=== PATIENT | female | born 1940 | race Caucasian/White ===

== ENCOUNTER 2016-03-03 17:09 | Inpatient (IN) ==
--- NOTE | 2016-03-05 14:39 | Internal Med History&Physical ---
Date of Encounter: 03/05/16 Time of Encounter: 14:30 Assessment and Plan (1) History of total right knee replacement Current visit: Yes Status: Acute Status post right total knee replacement for osteoarthritis. Internal Medicine - H&P: HPI Chief complaint: Patient had a total knee done due to osteoarthritis Admitted From: Hospital to Hospital Transfer Plans for Post Hospital Care: Home History of present illness: Ms. Sandhu is a 76 year old female Past Med Surg Social Fam HX - Past Medical History Medical history: arthritis, cancer, diabetes, GERD, glaucoma, hyperlipidemia, hypertension - Past Surgical History Surgical History: hysterectomy - Social History Smoking Status: Never smoker Alcohol use: none Drug use: none Internal Medicine - H&P: Meds Allergies Sulfa (Sulfonamide Antibiotics) Adverse Reaction (Verified 02/24/15 08:40) Hives All Systems PM: A 10-system review of systems was performed and is negative for pertinent findings except as documented above in the HPI. - Head Head exam: Present: atraumatic, normocephalic - Neck Neck exam general surgery: Present: supple, trachea midline. Absent: lymphadenopathy - Respiratory Respiratory exam: Present: CTAB. Absent: accessory muscle use, rales, rhonchi, wheezes - Cardiovascular Cardiovascular exam: Present: RRR, +S1, +S2. Absent: diastolic murmur, gallop, rubs, systolic murmur - GI/Abdominal GI/Abdominal exam: Present: normal bowel sounds, soft, no peritoneal signs. Absent: distended, tenderness - Expanded Lower Extremities Exam Knee exam: Present: swelling, tenderness Lower Leg exam: Present: normal inspection Internal Med - H&P Results - Labs Labs: Pending
[2016-03-05] MEDS ORDERED: Hydrocortisone Acetate 25 MG RECTAL SUPPOSITORY RC PRN (16:24)
[2016-03-05] MEDS ORDERED: NON-FORMULARY MEDICATION 1 EACH EACH (Oxycodone Hcl [Oxaydo] 5 MG) PO PRN (16:24)
[2016-03-05] MEDS ORDERED: Bisacodyl 10 MG RECTAL SUPPOSITORY RC PRN (16:24)
[2016-03-05] MEDS ORDERED: *HR* Dextrose 50 % in Water (Syg) 50 ML SYRINGE IVP PRN (16:31)
[2016-03-05] MEDS ORDERED: Dextrose Gel 15 GM PO PRN ×2 (16:31)
[2016-03-05] MEDS ORDERED: D5% in Water 1,000 ML IV PRN (16:31)
[2016-03-05] MEDS: *HR* Metformin 500 MG TABLET PO SCH (16:55)
[2016-03-05] MEDS: Insulin LISPRO 300 UNITS/3 ML VIAL SQ SCH ×2 (16:56→20:42)
[2016-03-05] MEDS: [UNRECOGNIZED DRUG - OTHER] PO SCH (16:58)
[2016-03-05] MEDS: Lisinopril 20 MG TABLET PO SCH (19:45)
[2016-03-05] MEDS: *HR* OxyCODONE/APAP 5/325 TABLET PO PRN (19:45)
[2016-03-05] MEDS: Ondansetron ODT 4 MG TAB.RAPDIS SL PRN (19:46)
[2016-03-05] MEDS: CALCIUM CARBONATE PO SCH (21:00)
[2016-03-05] MEDS: VITAMIN D3 PO SCH (21:00)
[2016-03-06 06:06] LABS: INR 1.3; Prothrombin Time 13.8 Seconds (9.4-12.1)
[2016-03-06 06:15] LABS: BUN/Creatinine Ratio 20 (6-26); Blood Urea Nitrogen 15 mg/dL (7-20); Calcium 9.1 mg/dL (8.6-10.8); Carbon Dioxide 29 mEq/L (19-29); Chloride 98 mEq/L (98-109); Glucose 190 mg/dL (70-99); Osmolality,Calculated 294 (280-300); Potassium 3.9 mEq/L (3.5-4.5); Sodium 139 mEq/L (136-145); eGFR For African Americans > 60 (> 60); eGFR For Non-African Americans > 60 (> 60)
[2016-03-06 06:25] LABS: Basophils # 0.1 K/mcL (0.0-0.2); Basophils % 0.5 %; Eosinophils # 0.3 K/mcL (0.0-0.6); Eosinophils % 2.6 %; Hematocrit 29.9 % (35.3-44.9); Hemoglobin 9.8 g/dL (11.5-15.4); Immature Granulocytes % 0.5 % (0-4); Lymphocytes # 2.8 K/mcL (0.6-4.6); Lymphocytes % 26.2 %; Mean Corpuscular HGB Conc 32.8 g/dL (31.6-35.5); Mean Corpuscular Hemoglobin 27.9 pg (28.0-33.3); Mean Corpuscular Volume 85.2 fL (83.0-100.0); Mean Platelet Volume 12.2 fL (9.4-12.4); Monocytes % 9.1 %; Neutrophils # 6.4 K/mcL (1.6-8.9); Platelet Count 164 K/mcL (140-400); Red Blood Count 3.51 M/mcL (3.82-4.97); Red Cell Distribution Width 14.4 % (11.5-14.5); Segmented Neutrophils % 61.1 %
[2016-03-06 06:26] LABS: Activated Partial Thrombo Time 19.1 Seconds (26.0-36.0)
[2016-03-06] MEDS: *HR* OxyCODONE/APAP 5/325 TABLET PO PRN ×2 (08:45→22:30)
[2016-03-06] MEDS: *HR* Rivaroxaban 10 MG TABLET PO SCH (08:46)
[2016-03-06] MEDS: Multivit/Ca/Min/Fe/FA 1 TAB TABLET PO SCH (08:46)
[2016-03-06] MEDS: Lisinopril 20 MG TABLET PO SCH ×2 (08:46→20:34)
[2016-03-06] MEDS: *HR* Metformin 500 MG TABLET PO SCH ×2 (08:46→17:16)
[2016-03-06] MEDS: Ondansetron ODT 4 MG TAB.RAPDIS SL PRN (08:46)
[2016-03-06] MEDS: Aspirin Enteric Coated 81 MG Tablet PO SCH (08:46)
[2016-03-06] MEDS: CALCIUM CARBONATE PO SCH ×2 (08:47→20:34)
[2016-03-06] MEDS: Fluticasone Propionate Nasal 50 MCG/SPRAY BOTTLE NS SCH (08:47)
[2016-03-06] MEDS: Insulin LISPRO 300 UNITS/3 ML VIAL SQ SCH ×4 (08:47→20:38)
[2016-03-06] MEDS: VITAMIN D3 PO SCH ×2 (08:47→20:34)
[2016-03-06] MEDS: WHEAT DEXTRIN PO SCH (08:48)
[2016-03-06] MEDS: Insulin DETEMIR 100 UNIT/ML X5UNITS SQ SCH (08:53)
[2016-03-06] MEDS ORDERED: NON-FORMULARY MEDICATION 1 EACH EACH (Insulin Glargine [Lantus] 20 UNITS) SQ SCH (09:00)
[2016-03-06] MEDS: [UNRECOGNIZED DRUG - OTHER] PO SCH (16:57)
--- NOTE | 2016-03-06 23:25 | Internal Med Progress Note ---
Date of Encounter: 03/06/16 Time of Encounter: 23:23 - Assessment and plan (1) History of total right knee replacement Current Visit: Yes Status: Acute Assessment and plan: PT OT working on improving gait, transfer and balance. (2) Diabetes mellitus Current Visit: Yes Status: Acute Assessment and plan: Accu-Chek today is 222. On oral agents plus sliding-scale insulin. Continue to monitor. 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 Pain is controlled with oral meds. Still complains of constipation after MiraLAX. No shortness of breath. No chest pain. Fair appetite. - Constitutional Vitals: Temp Pulse Resp BP Pulse Ox 99 F 105 17 152/73 94 L 03/06/16 19:00 03/06/16 19:00 03/06/16 19:00 03/06/16 19:00 03/06/16 19:00 General appearance: Present: A&O X 3, pleasant, no acute distress - Respiratory Respiratory exam: Present: CTAB. Absent: accessory muscle use, rales, rhonchi, wheezes - Cardiovascular Cardiovascular exam: Present: RRR, +S1, +S2. Absent: diastolic murmur, gallop, rubs, systolic murmur - GI/Abdominal GI/Abdominal exam: Present: normal bowel sounds, soft, no peritoneal signs. Absent: distended, tenderness - Expanded Lower Extremities Exam Knee exam: Present: ecchymosis, swelling, tenderness Gait: Present: observed and limited by pain - Neurological Exam Neurological exam: Present: CN II-XII intact, oriented X3, no focal deficits. Absent: pronater drift, facial droop, speech deficit Internal Medicine: Result - Labs CBC & Chem 7: 03/06/16 05:50 03/06/16 05:50 Labs: Short CBC 03/06/16 Range/Units 05:50 WBC 10.5 (4.3-11.1) K/mcL Hgb 9.8 L (11.5-15.4) g/dL Hct 29.9 L (35.3-44.9) % Plt Count 164 (140-400) K/mcL Neutrophils # 6.4 (1.6-8.9) K/mcL BMP 03/06/16 05:50 Sodium 139 Potassium 3.9 Chloride 98 Carbon Dioxide 29 BUN 15 Creatinine 0.75 Glucose 190 H Calcium 9.1 - ABG Interpretation ABG results: PT/INR, D-dimer PT 13.8 Seconds (9.4-12.1) H 03/06/16 05:50 - VTE Documentation of Mechanical Device: Graduated compression elastic hosiery Consult Discharge Plan - Plan Referrals: Albertina Stark MD [Primary Care Provider] -
[2016-03-07] MEDS: Insulin LISPRO 300 UNITS/3 ML VIAL SQ SCH ×4 (07:52→21:41)
--- NOTE | 2016-03-07 08:45 | Internal Med Progress Note ---
Date of Encounter: 03/07/16 Time of Encounter: 08:43 - Assessment and plan (1) History of total right knee replacement Current Visit: Yes Status: Acute Assessment and plan: PT OT working on improving gait, transfer and balance. (2) Diabetes mellitus Current Visit: Yes Status: Acute Assessment and plan: Accu-Chek today is 166. On oral agents plus sliding-scale insulin. Continue to monitor. 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 . Pain is controlled with oral meds. Good bowel movement after MiraLAX. No shortness of breath. No chest pain. Fair appetite. - Constitutional Vitals: Temp Pulse Resp BP Pulse Ox 97.3 F L 84 16 119/53 95 03/07/16 07:36 03/07/16 07:36 03/07/16 07:36 03/07/16 07:36 03/07/16 07:36 General appearance: Present: A&O X 3, pleasant, no acute distress - Respiratory Respiratory exam: Present: CTAB. Absent: accessory muscle use, rales, rhonchi, wheezes - Cardiovascular Cardiovascular exam: Present: RRR, +S1, +S2. Absent: diastolic murmur, gallop, rubs, systolic murmur - GI/Abdominal GI/Abdominal exam: Present: normal bowel sounds, soft, no peritoneal signs. Absent: distended, tenderness - Expanded Lower Extremities Exam Knee exam: Present: ecchymosis, swelling, tenderness Internal Medicine: Result - Labs CBC & Chem 7: 03/06/16 05:50 03/06/16 05:50 - ABG Interpretation ABG results: PT/INR, D-dimer PT 13.8 Seconds (9.4-12.1) H 03/06/16 05:50 - VTE Documentation of Mechanical Device: Graduated compression elastic hosiery Consult Discharge Plan - Plan Referrals: Albertina Stark MD [Primary Care Provider] -
[2016-03-07] MEDS: VITAMIN D3 PO SCH ×2 (08:53→21:41)
[2016-03-07] MEDS: CALCIUM CARBONATE PO SCH ×2 (08:53→21:41)
[2016-03-07] MEDS: WHEAT DEXTRIN PO SCH (08:54)
[2016-03-07] MEDS: *HR* Metformin 500 MG TABLET PO SCH ×2 (08:54→16:56)
[2016-03-07] MEDS: *HR* Rivaroxaban 10 MG TABLET PO SCH (08:54)
[2016-03-07] MEDS: Multivit/Ca/Min/Fe/FA 1 TAB TABLET PO SCH (08:54)
[2016-03-07] MEDS: *HR* OxyCODONE/APAP 5/325 TABLET PO PRN ×2 (08:55→22:43)
[2016-03-07] MEDS: Aspirin Enteric Coated 81 MG Tablet PO SCH (08:55)
[2016-03-07] MEDS: Lisinopril 20 MG TABLET PO SCH ×2 (08:55→21:41)
[2016-03-07] MEDS: Fluticasone Propionate Nasal 50 MCG/SPRAY BOTTLE NS SCH (08:56)
[2016-03-07] MEDS: Insulin DETEMIR 100 UNIT/ML X5UNITS SQ SCH (08:56)
[2016-03-07] MEDS: [UNRECOGNIZED DRUG - OTHER] PO SCH (16:53)
--- NOTE | 2016-03-07 19:55 | Electrocardiograph Report ---
[facility] Test Date: 2016-03-06 Pat Name: Ginger Sandhu Department: [id number] Room: 105 Gender: F Conversion Man: : 1940 Requested By: Scooter Santiago Order Number: [id number] Reading MD: Darryl Macario DO Measurements Intervals [place] Rate: 92 P: 34 WV: 164 QRS: -40 QRSD: 148 T: 16 QT: 399 QTc: 449 Interpretive Statements SINUS RHYTHM WITH SUPRAVENTRICULAR PREMATURE COMPLEXES LEFT AXIS DEVIATION RIGHT BUNDLE BRANCH BLOCK Electronically Signed On 03-07-16 19:54:29 EST by Darryl Macario DO
[2016-03-08] MEDS: *HR* OxyCODONE/APAP 5/325 TABLET PO PRN ×2 (05:52→10:07)
[2016-03-08] MEDS: *HR* Metformin 500 MG TABLET PO SCH ×2 (07:47→16:56)
[2016-03-08 07:48] LABS: Basophils # 0.1 K/mcL (0.0-0.2); Basophils % 0.5 %; Eosinophils # 0.3 K/mcL (0.0-0.6); Eosinophils % 3.1 %; Hematocrit 29.2 % (35.3-44.9); Hemoglobin 9.4 g/dL (11.5-15.4); Immature Granulocytes % 0.6 % (0-4); Lymphocytes # 2.1 K/mcL (0.6-4.6); Lymphocytes % 21.4 %; Mean Corpuscular HGB Conc 32.2 g/dL (31.6-35.5); Mean Corpuscular Hemoglobin 27.4 pg (28.0-33.3); Mean Corpuscular Volume 85.1 fL (83.0-100.0); Mean Platelet Volume 11.7 fL (9.4-12.4); Monocytes # 0.8 K/mcL (0.0-1.3); Monocytes % 8.6 %; Neutrophils # 6.4 K/mcL (1.6-8.9); Nucleated Red Blood Cells 0.2 /100 WBC (0); Platelet Count 189 K/mcL (140-400); Red Blood Count 3.43 M/mcL (3.82-4.97); Red Cell Distribution Width 14.3 % (11.5-14.5); Segmented Neutrophils % 65.8 %
[2016-03-08] MEDS: Insulin LISPRO 300 UNITS/3 ML VIAL SQ SCH ×4 (07:48→21:30)
[2016-03-08 08:09] LABS: BUN/Creatinine Ratio 19 (6-26); Blood Urea Nitrogen 14 mg/dL (7-20); Calcium 8.9 mg/dL (8.6-10.8); Carbon Dioxide 29 mEq/L (19-29); Chloride 99 mEq/L (98-109); Glucose 215 mg/dL (70-99); Osmolality,Calculated 295 (280-300); Potassium 4.4 mEq/L (3.5-4.5); Sodium 139 mEq/L (136-145); eGFR For African Americans > 60 (> 60); eGFR For Non-African Americans > 60 (> 60)
[2016-03-08] MEDS: WHEAT DEXTRIN PO SCH (08:29)
[2016-03-08] MEDS: CALCIUM CARBONATE PO SCH ×2 (08:29→21:30)
[2016-03-08] MEDS: VITAMIN D3 PO SCH ×2 (08:29→21:30)
[2016-03-08] MEDS: Lisinopril 20 MG TABLET PO SCH ×2 (08:38→21:43)
[2016-03-08] MEDS: Aspirin Enteric Coated 81 MG Tablet PO SCH (08:38)
[2016-03-08] MEDS: *HR* Rivaroxaban 10 MG TABLET PO SCH (08:38)
[2016-03-08] MEDS: Fluticasone Propionate Nasal 50 MCG/SPRAY BOTTLE NS SCH (08:38)
[2016-03-08] MEDS: Insulin DETEMIR 100 UNIT/ML X5UNITS SQ SCH (08:38)
[2016-03-08] MEDS: Multivit/Ca/Min/Fe/FA 1 TAB TABLET PO SCH (08:38)
[2016-03-08] MEDS: Ondansetron ODT 4 MG TAB.RAPDIS SL PRN (10:08)
--- NOTE | 2016-03-08 13:45 | Internal Med Progress Note ---
Date of Encounter: 03/08/16 Time of Encounter: 11:00 - Assessment and plan (1) History of total right knee replacement Current Visit: Yes Status: Acute Assessment and plan: History of total knee replacement patient's doing well and will be discharged from - Time Spent With Patient less than 15 minutes - Subjective Interval history: Patient is doing well only complaint was a small rash on her left side that I was concerned could be some early shingles but if the hydrocortisone cream deteriorated and we will oriented about shingles. - Constitutional Vitals: Temp Pulse Resp BP Pulse Ox 97.0 F L 85 18 146/70 95 03/08/16 07:32 03/08/16 07:32 03/08/16 07:32 03/08/16 11:24 03/08/16 11:24 General appearance: Present: A&O X 3, pleasant, no acute distress - Head Head exam: Present: atraumatic, normal inspection, normocephalic - Neck Neck exam general surgery: Present: supple, trachea midline. Absent: lymphadenopathy - Respiratory Respiratory exam: Present: CTAB. Absent: accessory muscle use, rales, rhonchi, wheezes - Cardiovascular Cardiovascular exam: Present: RRR, +S1, +S2. Absent: diastolic murmur, gallop, rubs, systolic murmur - GI/Abdominal GI/Abdominal exam: Present: normal bowel sounds, soft, no peritoneal signs. Absent: distended, tenderness Additional comments: Small area below the ribs on the left side a couple of small red circles or possibly one blister and we will see if this resolves with topical medication Internal Medicine: Result - Labs CBC & Chem 7: 03/08/16 07:34 03/08/16 07:34 Labs: Short CBC 03/08/16 Range/Units 07:34 WBC 9.7 (4.3-11.1) K/mcL Hgb 9.4 L (11.5-15.4) g/dL Hct 29.2 L (35.3-44.9) % Plt Count 189 (140-400) K/mcL Neutrophils # 6.4 (1.6-8.9) K/mcL Lab looks good [facility] 03/08/16 07:34 Sodium 139 Potassium 4.4 Chloride 99 Carbon Dioxide 29 BUN 14 Creatinine 0.72 Glucose 215 H Calcium 8.9 - ABG Interpretation ABG results: PT/INR, D-dimer PT 13.8 Seconds (9.4-12.1) H 03/06/16 05:50 - VTE Documentation of Mechanical Device: Graduated compression elastic hosiery Consult Discharge Plan - Plan Referrals: Albertina Stark MD [Primary Care Provider] -
[2016-03-08] MEDS: [UNRECOGNIZED DRUG - OTHER] PO SCH (16:59)
[2016-03-09] MEDS: *HR* OxyCODONE/APAP 5/325 TABLET PO PRN ×2 (08:07→18:07)
[2016-03-09] MEDS: *HR* Rivaroxaban 10 MG TABLET PO SCH (08:08)
[2016-03-09] MEDS: Aspirin Enteric Coated 81 MG Tablet PO SCH (08:08)
[2016-03-09] MEDS: Multivit/Ca/Min/Fe/FA 1 TAB TABLET PO SCH (08:08)
[2016-03-09] MEDS: *HR* Metformin 500 MG TABLET PO SCH ×2 (08:08→18:07)
[2016-03-09] MEDS: Lisinopril 20 MG TABLET PO SCH ×2 (08:08→21:07)
[2016-03-09] MEDS: VITAMIN D3 PO SCH ×2 (08:09→22:14)
[2016-03-09] MEDS: Insulin LISPRO 300 UNITS/3 ML VIAL SQ SCH ×4 (08:09→21:11)
[2016-03-09] MEDS: Fluticasone Propionate Nasal 50 MCG/SPRAY BOTTLE NS SCH (08:09)
[2016-03-09] MEDS: CALCIUM CARBONATE PO SCH ×2 (08:09→22:14)
[2016-03-09] MEDS: Insulin DETEMIR 100 UNIT/ML X5UNITS SQ SCH (08:09)
[2016-03-09] MEDS: WHEAT DEXTRIN PO SCH (08:10)
--- NOTE | 2016-03-09 13:38 | Internal Med Progress Note ---
Date of Encounter: 03/09/16 Time of Encounter: 13:36 - Assessment and plan (1) History of total right knee replacement Current Visit: Yes Status: Acute Assessment and plan: Secondary to osteoarthritis. Patient is recovering nicely - Time Spent With Patient less than 15 minutes - Subjective Interval history: Been using cortisone cream on the rash and does seem to have faded some. No new breakouts. And the patient stated that the sleeping medicine helped and she get a good night's rest. Ambulating about the unit with her walker and doing very well - Constitutional Vitals: Temp Pulse Resp BP Pulse Ox 98.6 F 93 18 179/73 94 L 03/09/16 07:21 03/09/16 07:21 03/09/16 07:21 03/09/16 07:21 03/09/16 07:21 General appearance: Present: A&O X 3, pleasant, no acute distress - Head Head exam: Present: atraumatic, normal inspection, normocephalic - Neck Neck exam general surgery: Present: supple, trachea midline. Absent: lymphadenopathy - Respiratory Respiratory exam: Present: CTAB. Absent: accessory muscle use, rales, rhonchi, wheezes - Cardiovascular Cardiovascular exam: Present: RRR, +S1, +S2. Absent: diastolic murmur, gallop, rubs, systolic murmur - GI/Abdominal GI/Abdominal exam: Present: normal bowel sounds, soft, no peritoneal signs. Absent: distended, tenderness Internal Medicine: Result - Labs CBC & Chem 7: 03/08/16 07:34 03/08/16 07:34 Labs: Laboratory does not look bad. - ABG Interpretation ABG results: PT/INR, D-dimer PT 13.8 Seconds (9.4-12.1) H 03/06/16 05:50 - VTE Documentation of Mechanical Device: Graduated compression elastic hosiery Consult Discharge Plan - Plan Referrals: Albertina Stark MD [Primary Care Provider] -
[2016-03-09] MEDS ORDERED: Acetaminophen 325 MG TABLET PO PRN (14:41)
[2016-03-09] MEDS: [UNRECOGNIZED DRUG - OTHER] PO SCH (18:05)
[2016-03-10] MEDS: *HR* OxyCODONE/APAP 5/325 TABLET PO PRN (07:50)
[2016-03-10] MEDS: Multivit/Ca/Min/Fe/FA 1 TAB TABLET PO SCH (07:51)
[2016-03-10] MEDS: Lisinopril 20 MG TABLET PO SCH ×2 (07:51→21:12)
[2016-03-10] MEDS: Aspirin Enteric Coated 81 MG Tablet PO SCH (07:51)
[2016-03-10] MEDS: *HR* Rivaroxaban 10 MG TABLET PO SCH (07:51)
[2016-03-10] MEDS: *HR* Metformin 500 MG TABLET PO SCH ×2 (07:51→17:08)
[2016-03-10] MEDS: Fluticasone Propionate Nasal 50 MCG/SPRAY BOTTLE NS SCH (07:52)
[2016-03-10] MEDS: Insulin LISPRO 300 UNITS/3 ML VIAL SQ SCH ×4 (07:52→21:13)
[2016-03-10] MEDS: VITAMIN D3 PO SCH ×2 (07:52→22:40)
[2016-03-10] MEDS: Insulin DETEMIR 100 UNIT/ML X5UNITS SQ SCH (07:52)
[2016-03-10] MEDS: CALCIUM CARBONATE PO SCH ×2 (07:52→22:40)
[2016-03-10] MEDS: WHEAT DEXTRIN PO SCH (07:53)
--- NOTE | 2016-03-10 12:16 | Physical Med Progress Note ---
Date of Encounter: 03/10/16 Time of Encounter: 12:11 Physical Medicine-PN: Subj Interval history: PM&R PCC note Patient is doing well following a right TKA. She is Giovanni for all ADLs. She is ambulating with a walker, able to do 4 steps. Pain well controlled. Plan for discharge to home 03/11/16. Plan for outpatient PT after discharge. - Constitutional Vitals: Vital Signs Temp Pulse Resp BP Pulse Ox 03/10/16 07:31 100.7 F H 88 18 154/79 93 L 03/09/16 19:20 98.0 F 88 16 151/67 97 Intake and Output 03/09/16 03/10/16 03/10/16 23:59 07:59 15:59 Intake Total 240 / 240 Balance 240 / 240 Intake: Oral 240 / 240 Other: Meal Breakfast Percent of Meal Consumed 100% # Voids 1 Blood Glucose* 199 188 159 Physical Medicine-PN: Obj Data - Labs CBC & Chem 7: 03/08/16 07:34 03/08/16 07:34 Labs: Laboratory Results - last 24 hr 03/09/16 03/09/16 03/10/16 16:33 20:25 06:59 POC Glucose 136 H 199 H 188 H 03/10/16 11:20 POC Glucose 159 H - ABG Interpretation ABG results: PT/INR, D-dimer PT 13.8 Seconds (9.4-12.1) H 03/06/16 05:50 - VTE Documentation of Mechanical Device: Graduated compression elastic hosiery Consult Discharge Plan - Plan Referrals: Albertina Stark MD [Primary Care Provider] -
--- NOTE | 2016-03-10 14:13 | Discharge Summary ---
Date of Encounter: 03/10/16 Time of Encounter: 14:11 - Discharge Diagnosis (1) History of total right knee replacement Priority: Primary Status: Acute Comments: Doing very well. Patient is using a walker going up and down the hallways. He able to do household distances without difficulty - Discharge Medications Home Medications: Aspirin [Lo-Dose Aspirin EC] 81 mg PO DAILY 03/05/16 [History] Bisacodyl [Dulcolax] 10 mg RC DAILY PRN 03/05/16 [History] Calcium Carbonate/Vitamin D3 [Calcium 600 + Vit D Tablet] 1 each PO BID [History] DiphenhydraMINE [Benadryl] 25 mg PO Q6HR PRN 03/05/16 [History] Ferrous Sulfate [Iron] 325 mg PO DAILY 03/05/16 [History] Fluticasone Propionate Nasal [Flonase] 2 spray .ROUTE DAILY 03/05/16 [History] Gluc/Tomy-MSM#1/Vit C/Pantera/Bor [Lqzinpn-Jfarz-WEE Complex Cplt] 1 each PO 1-2XD 03/05/16 [History] Hydrocortisone Acetate [Anusol-Hc] 25 mg RC BID PRN 03/05/16 [History] Insulin Glargine [Lantus] 20 units SQ DAILY 03/05/16 [History] Insulin LISPRO [Humalog] 1 unit SQ TID 03/05/16 [History] Lisinopril [Zestril] 20 mg PO BID 03/05/16 [History] Meloxicam [Mobic] 15 mg PO DAILY 03/05/16 [History] Metformin [Glucophage] 1,000 mg PO BIDWM 03/05/16 [History] Multivit-Min/Iron Fum/Folic AC [Glprb-Sxyrzal-Oqsjhdbd Tablet] 1 each PO DAILY 03/05/16 [History] Omeprazole [PriLOSEC] 20 mg PO DAILY 03/05/16 [History] Oxycodone HCl [Oxaydo] 5 mg PO Q4H PRN 03/05/16 [History] Oxycodone HCl [Oxycontin] 10 mg PO Q4H PRN MDD pain 03/05/16 [History] Polyethylene Glycol 3350 [MiraLAX] 17 gm PO DAILY 03/05/16 [History] Pravastatin Sodium [Pravachol] 10 mg PO DAILY 03/05/16 [History] Rivaroxaban [Xarelto] 10 mg PO DAILY 03/05/16 [History] Wheat Dextrin [Benefiber] 1 tab PO DAILY 03/05/16 [History] Allergies/Adverse Reactions: Allergies adhesive tape Allergy (Verified 03/05/16 16:41) Blister Sulfa (Sulfonamide Antibiotics) Adverse Reaction (Verified 02/24/15 08:40) Hives Date of admission: 03/05/16 14:19 Primary care physician: Albertina Stark, Consults: 03/05/16 16:35 Consult to Occupational Therapy [CONS] Routine Comment: Evaluate, develop and implement POC Consult to Physical Therapy [CONS] Routine Comment: Evaluate, develop and implement POC Consult to Recreational Therapy [CONS] Routine Comment: Evaluate, develop and implement POC Consult to Coordinate Measuring Machine Technician [CONS] Routine Reason for SW Consult: discharge planning discharge planning Discharging clinician: Nicolas Robbins Anticipated date of discharge: 03/11/16 - Patient Status Disposition: Home, Self-Care Condition: Good Functional capacity at discharge: uses cane/walker Overall status at discharge: patient is progressing back to baseline - Discharge Instructions Follow Up With: Albertina Stark MD [Primary Care Provider] - - Diet and Activity Activity: ambulate only with your walker Diet: advance to your usual diet Interval History: Patient was transferred to the [place] for rehabilitation status post right total knee replacement Hospital course: Ms. Sandhu is a 76 year old female Patient does work with PT OT and TR daily basis. She is ambulating about the unit with a walker and doing very well - Time Spent with Patient Total time spent providing and/or coordinating discharge services: Less than 30 minutes - Constitutional Vitals: Temp Pulse Resp BP Pulse Ox 100.7 F H 88 18 154/79 93 L 03/10/16 07:31 03/10/16 07:31 03/10/16 07:31 03/10/16 07:31 03/10/16 07:31 General appearance: Present: A&O X 3, pleasant, no acute distress - Head Head exam: Present: atraumatic, normal inspection, normocephalic - Neck Neck exam general surgery: Present: supple, trachea midline. Absent: lymphadenopathy - Respiratory Respiratory exam: Present: CTAB. Absent: accessory muscle use, rales, rhonchi, wheezes - Cardiovascular Cardiovascular exam: Present: RRR, +S1, +S2. Absent: diastolic murmur, gallop, rubs, systolic murmur - GI/Abdominal GI/Abdominal exam: Present: normal bowel sounds, soft, no peritoneal signs. Absent: distended, tenderness - VTE Documentation of Mechanical Device: Graduated compression elastic hosiery
--- NOTE | 2016-03-10 14:17 | Discharge Summary ---
Date of Encounter: 03/10/16 Time of Encounter: 14:15 - Discharge Diagnosis (1) History of total right knee replacement Priority: Primary Status: Acute Comments: Patient was brought here for rehabilitation status post right total knee replacement for OA - Discharge Medications Home Medications: Aspirin [Lo-Dose Aspirin EC] 81 mg PO DAILY 03/05/16 [History] Bisacodyl [Dulcolax] 10 mg RC DAILY PRN 03/05/16 [History] Calcium Carbonate/Vitamin D3 [Calcium 600 + Vit D Tablet] 1 each PO BID [History] DiphenhydraMINE [Benadryl] 25 mg PO Q6HR PRN 03/05/16 [History] Ferrous Sulfate [Iron] 325 mg PO DAILY 03/05/16 [History] Fluticasone Propionate Nasal [Flonase] 2 spray .ROUTE DAILY 03/05/16 [History] Gluc/Tomy-MSM#1/Vit C/Pantera/Bor [Vzxdmvy-Eiika-MCS Complex Cplt] 1 each PO 1-2XD 03/05/16 [History] Hydrocortisone Acetate [Anusol-Hc] 25 mg RC BID PRN 03/05/16 [History] Insulin Glargine [Lantus] 20 units SQ DAILY 03/05/16 [History] Insulin LISPRO [Humalog] 1 unit SQ TID 03/05/16 [History] Lisinopril [Zestril] 20 mg PO BID 03/05/16 [History] Meloxicam [Mobic] 15 mg PO DAILY 03/05/16 [History] Metformin [Glucophage] 1,000 mg PO BIDWM 03/05/16 [History] Multivit-Min/Iron Fum/Folic AC [Pvjwo-Cgqajkx-Epdhyzsu Tablet] 1 each PO DAILY 03/05/16 [History] Omeprazole [PriLOSEC] 20 mg PO DAILY 03/05/16 [History] Oxycodone HCl [Oxaydo] 5 mg PO Q4H PRN 03/05/16 [History] Oxycodone HCl [Oxycontin] 10 mg PO Q4H PRN MDD pain 03/05/16 [History] Polyethylene Glycol 3350 [MiraLAX] 17 gm PO DAILY 03/05/16 [History] Pravastatin Sodium [Pravachol] 10 mg PO DAILY 03/05/16 [History] Rivaroxaban [Xarelto] 10 mg PO DAILY 03/05/16 [History] Wheat Dextrin [Benefiber] 1 tab PO DAILY 03/05/16 [History] Allergies/Adverse Reactions: Allergies adhesive tape Allergy (Verified 03/05/16 16:41) Blister Sulfa (Sulfonamide Antibiotics) Adverse Reaction (Verified 02/24/15 08:40) Hives Date of admission: 03/05/16 14:19 Primary care physician: Albertina Stark, Consults: 03/05/16 16:35 Consult to Occupational Therapy [CONS] Routine Comment: Evaluate, develop and implement POC Consult to Physical Therapy [CONS] Routine Comment: Evaluate, develop and implement POC Consult to Recreational Therapy [CONS] Routine Comment: Evaluate, develop and implement POC Consult to Ramp Attendant [CONS] Routine Reason for SW Consult: discharge planning discharge planning Discharging clinician: Nicolas Robbins Anticipated date of discharge: 03/10/16 - Patient Status Disposition: Home, Self-Care Overall status at discharge: patient is progressing back to baseline - Discharge Instructions Follow Up With: Albertina Stark MD [Primary Care Provider] - - Diet and Activity Activity: ambulate only with your walker Diet: advance to your usual diet Interval History: status post right total knee replacement for OA Hospital course: Ms. Sandhu is a 76 year old female Patient was brought here for rehabilitation is done very well. 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 - Time Spent with Patient Total time spent providing and/or coordinating discharge services: Less than 30 minutes - Constitutional Vitals: Temp Pulse Resp BP Pulse Ox 100.7 F H 88 18 154/79 93 L 03/10/16 07:31 03/10/16 07:31 03/10/16 07:31 03/10/16 07:31 03/10/16 07:31 General appearance: Present: A&O X 3, pleasant, no acute distress - Head Head exam: Present: atraumatic, normal inspection, normocephalic - Neck Neck exam general surgery: Present: supple, trachea midline. Absent: lymphadenopathy - Respiratory Respiratory exam: Present: CTAB. Absent: accessory muscle use, rales, rhonchi, wheezes - Cardiovascular Cardiovascular exam: Present: RRR, +S1, +S2. Absent: diastolic murmur, gallop, rubs, systolic murmur - GI/Abdominal GI/Abdominal exam: Present: normal bowel sounds, soft, no peritoneal signs. Absent: distended, tenderness - VTE Documentation of Mechanical Device: Graduated compression elastic hosiery
[2016-03-10] MEDS: [UNRECOGNIZED DRUG - OTHER] PO SCH (17:06)
[2016-03-11 07:15] VITALS: BP 168/96
[2016-03-11] MEDS: Ondansetron ODT 4 MG TAB.RAPDIS SL PRN (08:17)
[2016-03-11] MEDS: Insulin LISPRO 300 UNITS/3 ML VIAL SQ SCH (08:18)
[2016-03-11] MEDS: Lisinopril 20 MG TABLET PO SCH (08:19)
[2016-03-11] MEDS: Multivit/Ca/Min/Fe/FA 1 TAB TABLET PO SCH (08:19)
[2016-03-11] MEDS: *HR* Metformin 500 MG TABLET PO SCH (08:19)
[2016-03-11] MEDS: *HR* Rivaroxaban 10 MG TABLET PO SCH (08:19)
[2016-03-11] MEDS: *HR* OxyCODONE/APAP 5/325 TABLET PO PRN ×2 (08:19→12:10)
[2016-03-11] MEDS: Insulin DETEMIR 100 UNIT/ML X5UNITS SQ SCH (08:20)
[2016-03-11] MEDS: Aspirin Enteric Coated 81 MG Tablet PO SCH (08:20)
[2016-03-11] MEDS: WHEAT DEXTRIN PO SCH (08:21)
[2016-03-11] MEDS: CALCIUM CARBONATE PO SCH (08:21)
[2016-03-11] MEDS: VITAMIN D3 PO SCH (08:21)
[2016-03-11] MEDS: Fluticasone Propionate Nasal 50 MCG/SPRAY BOTTLE NS SCH (08:21)
== END 2016-03-11 12:15 | disposition home or self-care (01) | DRG 561 ==
LOC: INPGRE 03-05 14:19
PROVIDERS: ADMIT Internal Medicine; ATTEND Internal Medicine

== ENCOUNTER 2016-04-09 11:13 | Inpatient (IN) ==
--- NOTE | 2016-04-09 16:22 | Internal Med History&Physical ---
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 Very little pain was involved in its healing well (3) History of total left knee replacement Current visit: Yes Status: Acute Patient states more pain than the previous procedure. So we will make some adjustments and work with her.. Internal Medicine - H&P: HPI Chief complaint: Patient had a left total knee replacement was here for rehabilitation Admitted From: Hospital to Hospital Transfer Plans for Post Hospital Care: Home History of present illness: Ms. Sandhu is a 76 year old female She has had bilateral knees with osteoarthritis. Past Med Surg Social Fam HX - Past Medical History Medical history: arthritis, cancer, diabetes, GERD, glaucoma, hyperlipidemia, hypertension Psychiatric history: no psych history - Past Surgical History Surgical History: hysterectomy - Social History Smoking Status: Never smoker Alcohol use: none Drug use: none - Family History Father Living Status: Hx Family Cardiac Disorders: Yes ([place]) Mother Living Status: Hx Family Cancer: Yes (colon CA) Internal Medicine - H&P: Meds Aspirin [Lo-Dose Aspirin EC] 81 mg PO DAILY 03/05/16 [History] Bisacodyl [Dulcolax] 10 mg RC DAILY PRN 03/05/16 [History] Calcium Carbonate/Vitamin D3 [Calcium 600 + Vit D Tablet] 1 each PO BID [History] DiphenhydraMINE [Benadryl] 25 mg PO Q6HR PRN 03/05/16 [History] Ferrous Sulfate [Iron] 325 mg PO DAILY 03/05/16 [History] Fluticasone Propionate Nasal [Flonase] 2 spray .ROUTE DAILY 03/05/16 [History] Gluc/Tomy-MSM#1/Vit C/Pantera/Bor [Tufprsd-Hqfvy-JMM Complex Cplt] 1 each PO 1-2XD 03/05/16 [History] Hydrocortisone Acetate [Anusol-Hc] 25 mg RC BID PRN 03/05/16 [History] Insulin Glargine [Lantus] 20 units SQ DAILY 03/05/16 [History] Insulin LISPRO [Humalog] 1 unit SQ TID 03/05/16 [History] Lisinopril [Zestril] 20 mg PO BID 03/05/16 [History] Meloxicam [Mobic] 15 mg PO DAILY 03/05/16 [History] Metformin [Glucophage] 1,000 mg PO BIDWM 03/05/16 [History] Multivit-Min/Iron Fum/Folic AC [Lrdzu-Yntbbqi-Czxqwyzh Tablet] 1 each PO DAILY 03/05/16 [History] Omeprazole [PriLOSEC] 20 mg PO DAILY 03/05/16 [History] Oxycodone HCl [Oxaydo] 5 mg PO Q4H PRN 03/05/16 [History] Oxycodone HCl [Oxycontin] 10 mg PO Q4H PRN MDD pain 03/05/16 [History] Polyethylene Glycol 3350 [MiraLAX] 17 gm PO DAILY 03/05/16 [History] Pravastatin Sodium [Pravachol] 10 mg PO DAILY 03/05/16 [History] Rivaroxaban [Xarelto] 10 mg PO DAILY 03/05/16 [History] Wheat Dextrin [Benefiber] 1 tab PO DAILY 03/05/16 [History] Allergies adhesive tape Allergy (Verified 03/05/16 16:41) Blister Sulfa (Sulfonamide Antibiotics) Adverse Reaction (Verified 02/24/15 08:40) Hives All Systems PM: A 10-system review of systems was performed and is negative for pertinent findings except as documented above in the HPI. - Constitutional Vitals: Temp Pulse Resp BP Pulse Ox 97.0 F L 106 18 147/54 96 04/09/16 15:18 04/09/16 15:18 04/09/16 15:18 04/09/16 15:18 04/09/16 15:18 - Head Head exam: Present: atraumatic, normal inspection, normocephalic - Neck Neck exam general surgery: Present: supple, trachea midline. Absent: lymphadenopathy - Respiratory Respiratory exam: Present: CTAB. Absent: accessory muscle use, rales, rhonchi, wheezes - Cardiovascular Cardiovascular exam: Present: RRR, +S1, +S2. Absent: diastolic murmur, gallop, rubs, systolic murmur - GI/Abdominal GI/Abdominal exam: Present: normal bowel sounds, soft, no peritoneal signs. Absent: distended, tenderness Internal Med - H&P Results - Labs Labs: Lab is pending
[2016-04-09] MEDS ORDERED: Bisacodyl 10 MG RECTAL SUPPOSITORY RC PRN (17:05)
[2016-04-09] MEDS ORDERED: Hydrocortisone Acetate 25 MG RECTAL SUPPOSITORY RC PRN (17:05)
[2016-04-09] MEDS: *HR* OxyCODONE Immed Rel 5 MG TABLET PO PRN ×2 (17:25→21:53)
[2016-04-09] MEDS: CALCIUM CARBONATE PO SCH (21:50)
[2016-04-09] MEDS: VITAMIN D3 PO SCH (21:50)
[2016-04-09] MEDS: Lisinopril 20 MG TABLET PO SCH (21:52)
[2016-04-10 05:52] LABS: Basophils % 0.4 %; Eosinophils # 0.2 K/mcL (0.0-0.6); Eosinophils % 2.4 %; Hematocrit 25.6 % (35.3-44.9); Hemoglobin 8.1 g/dL (11.5-15.4); Immature Granulocytes % 0.6 % (0-4); Lymphocytes # 2.4 K/mcL (0.6-4.6); Lymphocytes % 24.7 %; Mean Corpuscular HGB Conc 31.6 g/dL (31.6-35.5); Mean Corpuscular Hemoglobin 27.6 pg (28.0-33.3); Mean Corpuscular Volume 87.1 fL (83.0-100.0); Mean Platelet Volume 12.3 fL (9.4-12.4); Monocytes # 0.7 K/mcL (0.0-1.3); Monocytes % 7.5 %; Neutrophils # 6.2 K/mcL (1.6-8.9); Nucleated Red Blood Cells 0.3 /100 WBC (0); Platelet Count 175 K/mcL (140-400); Red Blood Count 2.94 M/mcL (3.82-4.97); Red Cell Distribution Width 15.3 % (11.5-14.5); Segmented Neutrophils % 64.4 %
[2016-04-10 06:04] LABS: BUN/Creatinine Ratio 18 (6-26); Blood Urea Nitrogen 12 mg/dL (7-20); Calcium 8.9 mg/dL (8.6-10.8); Carbon Dioxide 24 mEq/L (19-29); Chloride 102 mEq/L (98-109); Glucose 221 mg/dL (70-99); Osmolality,Calculated 291 (280-300); Potassium 4.1 mEq/L (3.5-4.5); Sodium 137 mEq/L (136-145); eGFR For African Americans > 60 (> 60); eGFR For Non-African Americans > 60 (> 60)
[2016-04-10] MEDS: *HR* OxyCODONE Immed Rel 5 MG TABLET PO PRN ×4 (07:53→22:11)
[2016-04-10] MEDS: *HR* Metformin 500 MG TABLET PO SCH ×2 (07:53→16:55)
[2016-04-10] MEDS: *HR* GlipiZIDE 5 MG TABLET PO SCH ×2 (07:54→16:55)
[2016-04-10] MEDS: CALCIUM CARBONATE PO SCH ×2 (07:57→22:12)
[2016-04-10] MEDS: VITAMIN D3 PO SCH ×2 (07:57→22:12)
[2016-04-10] MEDS: Lisinopril 20 MG TABLET PO SCH ×2 (09:15→22:11)
[2016-04-10] MEDS: Aspirin Enteric Coated 81 MG Tablet PO SCH (09:15)
[2016-04-10] MEDS: Multivit/Ca/Min/Fe/FA 1 TAB TABLET PO SCH (09:15)
[2016-04-10] MEDS: *HR* Rivaroxaban 10 MG TABLET PO SCH (09:15)
[2016-04-10] MEDS: Valsartan 160 MG TABLET PO SCH (09:15)
[2016-04-10] MEDS: *HR* Pioglitazone 30 MG TABLET PO SCH (09:15)
[2016-04-10] MEDS: Fluticasone Propionate Nasal 50 MCG/SPRAY BOTTLE NS SCH (09:16)
--- NOTE | 2016-04-10 13:07 | Internal Med Progress Note ---
Date of Encounter: 04/10/16 Time of Encounter: 12:52 - Assessment and plan (1) History of total left knee replacement Current Visit: Yes Status: Acute Assessment and plan: Has significant postop pain today. Taking Roxicet. PTOT to work on transfer, balance or gait endurance (2) Diabetes mellitus Current Visit: No Status: Chronic Assessment and plan: 283 today. 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 Complains of increasing postop pain. No shortness of breath. No chest pain. No vomiting diarrhea abdominal pain. Complains of being constipated - Constitutional Vitals: Temp Pulse Resp BP Pulse Ox 98.9 F 102 18 143/80 96 04/10/16 06:41 04/10/16 06:41 04/10/16 06:41 04/10/16 06:41 04/10/16 06:41 General appearance: Present: A&O X 3, pleasant, no acute distress - Respiratory Respiratory exam: Present: CTAB. Absent: accessory muscle use, rales, rhonchi, wheezes - Cardiovascular Cardiovascular exam: Present: RRR, +S1, +S2. Absent: diastolic murmur, gallop, rubs, systolic murmur - GI/Abdominal GI/Abdominal exam: Present: normal bowel sounds, soft, no peritoneal signs. Absent: distended, tenderness - Extremities Exam Extremities exam: Present: warm, radial pulses palpable and symetrical. Absent : calf tenderness, cyanotic, pedal edema - Neurological Exam Neurological exam: Present: CN II-XII intact, oriented X3, no focal deficits. Absent: pronater drift, facial droop, speech deficit - Skin Skin exam: Present: dry, intact Internal Medicine: Result - Labs CBC & Chem 7: 04/10/16 04:50 04/10/16 04:50 Labs: Short CBC 04/10/16 Range/Units 04:50 WBC 9.6 (4.3-11.1) K/mcL Hgb 8.1 L (11.5-15.4) g/dL Hct 25.6 L (35.3-44.9) % Plt Count 175 (140-400) K/mcL Neutrophils # 6.2 (1.6-8.9) K/mcL BMP 04/10/16 04:50 Sodium 137 Potassium 4.1 Chloride 102 Carbon Dioxide 24 BUN 12 Creatinine 0.66 Glucose 221 H Calcium 8.9 Consult Discharge Plan - Plan Referrals: Albertina Stark MD [Primary Care Provider] -
[2016-04-10] MEDS: Nystatin POWDER 30 GM BOTTLE TP PRN ×2 (14:47→22:11)
[2016-04-11] MEDS: *HR* OxyCODONE Immed Rel 5 MG TABLET PO PRN ×4 (02:02→20:11)
[2016-04-11] MEDS: *HR* GlipiZIDE 5 MG TABLET PO SCH ×2 (08:20→17:14)
[2016-04-11] MEDS: *HR* Metformin 500 MG TABLET PO SCH ×2 (08:21→17:18)
[2016-04-11] MEDS: Aspirin Enteric Coated 81 MG Tablet PO SCH (08:22)
[2016-04-11] MEDS: *HR* Rivaroxaban 10 MG TABLET PO SCH (08:22)
[2016-04-11] MEDS: Lisinopril 20 MG TABLET PO SCH ×2 (08:22→20:11)
[2016-04-11] MEDS: *HR* Pioglitazone 30 MG TABLET PO SCH (08:22)
[2016-04-11] MEDS: Multivit/Ca/Min/Fe/FA 1 TAB TABLET PO SCH (08:22)
[2016-04-11] MEDS: Fluticasone Propionate Nasal 50 MCG/SPRAY BOTTLE NS SCH (08:24)
[2016-04-11] MEDS: Valsartan 160 MG TABLET PO SCH (08:24)
[2016-04-11] MEDS: CALCIUM CARBONATE PO SCH ×2 (08:25→20:15)
[2016-04-11] MEDS: VITAMIN D3 PO SCH ×2 (08:25→20:15)
--- NOTE | 2016-04-11 10:25 | Internal Med Progress Note ---
Date of Encounter: 04/11/16 Time of Encounter: 10:24 - Assessment and plan (1) History of total left knee replacement Current Visit: Yes Status: Acute Assessment and plan: Has significant postop pain today. Taking Roxicet. PTOT to work on transfer, balance or gait endurance (2) Diabetes mellitus Current Visit: No Status: Chronic Assessment and plan: 283 today. 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 today. Complains of postop pain. No shortness of breath. No chest pain. No vomiting diarrhea abdominal pain. Complains of being constipated - Constitutional Vitals: Temp Pulse Resp BP Pulse Ox 98.3 F 100 20 111/61 93 L 04/11/16 07:18 04/11/16 07:18 04/11/16 07:18 04/11/16 07:18 04/11/16 07:18 General appearance: Present: A&O X 3, pleasant, no acute distress - Respiratory Respiratory exam: Present: CTAB. Absent: accessory muscle use, rales, rhonchi, wheezes - GI/Abdominal GI/Abdominal exam: Present: normal bowel sounds, soft, no peritoneal signs. Absent: distended, tenderness - Incison Incision: Present: clean and dry Internal Medicine: Result - Labs CBC & Chem 7: 04/10/16 04:50 04/10/16 04:50 Consult Discharge Plan - Plan Referrals: Albertina Stark MD [Primary Care Provider] -
[2016-04-11] MEDS: Nystatin POWDER 30 GM BOTTLE TP PRN (12:52)
[2016-04-11] MEDS: Acetaminophen 325 MG TABLET PO PRN (23:21)
[2016-04-12] MEDS: Nystatin POWDER 30 GM BOTTLE TP PRN ×3 (00:03→23:24)
[2016-04-12] MEDS: *HR* OxyCODONE Immed Rel 5 MG TABLET PO PRN ×6 (00:04→23:24)
[2016-04-12 06:19] LABS: Basophils # 0.1 K/mcL (0.0-0.2); Basophils % 0.4 %; Eosinophils # 0.4 K/mcL (0.0-0.6); Hematocrit 26.4 % (35.3-44.9); Hemoglobin 8.3 g/dL (11.5-15.4); Immature Granulocytes % 0.7 % (0-4); Lymphocytes # 3.5 K/mcL (0.6-4.6); Mean Corpuscular HGB Conc 31.4 g/dL (31.6-35.5); Mean Corpuscular Hemoglobin 27.5 pg (28.0-33.3); Mean Corpuscular Volume 87.4 fL (83.0-100.0); Mean Platelet Volume 11.4 fL (9.4-12.4); Monocytes % 7.8 %; Neutrophils # 7.9 K/mcL (1.6-8.9); Platelet Count 251 K/mcL (140-400); Red Blood Count 3.02 M/mcL (3.82-4.97); Red Cell Distribution Width 15.6 % (11.5-14.5); Segmented Neutrophils % 61.1 %
[2016-04-12 06:32] LABS: BUN/Creatinine Ratio 31 (6-26); Blood Urea Nitrogen 28 mg/dL (7-20); Calcium 8.7 mg/dL (8.6-10.8); Carbon Dioxide 23 mEq/L (19-29); Chloride 101 mEq/L (98-109); Glucose 160 mg/dL (70-99); Osmolality,Calculated 291 (280-300); Potassium 4.4 mEq/L (3.5-4.5); Sodium 136 mEq/L (136-145); eGFR For African Americans > 60 (> 60); eGFR For Non-African Americans > 60 (> 60)
[2016-04-12] MEDS: *HR* GlipiZIDE 5 MG TABLET PO SCH ×2 (08:19→16:40)
[2016-04-12] MEDS: *HR* Pioglitazone 30 MG TABLET PO SCH (08:20)
[2016-04-12] MEDS: Multivit/Ca/Min/Fe/FA 1 TAB TABLET PO SCH (08:20)
[2016-04-12] MEDS: *HR* Rivaroxaban 10 MG TABLET PO SCH (08:20)
[2016-04-12] MEDS: Aspirin Enteric Coated 81 MG Tablet PO SCH (08:20)
[2016-04-12] MEDS: *HR* Metformin 500 MG TABLET PO SCH ×2 (08:20→16:40)
[2016-04-12] MEDS: Valsartan 160 MG TABLET PO SCH (08:21)
[2016-04-12] MEDS: Fluticasone Propionate Nasal 50 MCG/SPRAY BOTTLE NS SCH (08:21)
[2016-04-12] MEDS: VITAMIN D3 PO SCH ×2 (08:22→23:30)
[2016-04-12] MEDS: CALCIUM CARBONATE PO SCH ×2 (08:22→23:30)
[2016-04-12] MEDS: Lisinopril 20 MG TABLET PO SCH ×2 (09:11→22:30)
[2016-04-12] MEDS: Ondansetron ODT 4 MG TAB.RAPDIS SL PRN (11:04)
[2016-04-12] MEDS ORDERED: Fluconazole 100 MG TABLET PO ONE (11:50)
--- NOTE | 2016-04-12 13:18 | Internal Med Progress Note ---
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 A meds are making her capable of doing therapy. Coming along slowly but surely. (3) History of total left knee replacement Current Visit: Yes Status: Acute Assessment and plan: Working with the therapist and is coming along. - Time Spent With Patient less than 15 minutes - Subjective Interval history: Patient still biggest issue. But the patient is working with the therapist. She states the pain medicine does help. But she is complaining of some itching after taking it so we will start some Benadryl with or just prior to her pain meds. - Constitutional Vitals: Temp Pulse Resp BP Pulse Ox 98.5 F 90 17 112/62 95 04/12/16 07:00 04/12/16 07:00 04/12/16 07:00 04/12/16 07:00 04/12/16 07:00 General appearance: Present: A&O X 3, pleasant, no acute distress - Head Head exam: Present: atraumatic, normal inspection, normocephalic - Neck Neck exam general surgery: Present: supple, trachea midline. Absent: lymphadenopathy - Respiratory Respiratory exam: Present: CTAB. Absent: accessory muscle use, rales, rhonchi, wheezes - Cardiovascular Cardiovascular exam: Present: RRR, +S1, +S2. Absent: diastolic murmur, gallop, rubs, systolic murmur Internal Medicine: Result - Labs CBC & Chem 7: 04/12/16 05:40 04/12/16 05:40 Labs: Short CBC 04/12/16 Range/Units 05:40 WBC 12.9 H (4.3-11.1) K/mcL Hgb 8.3 L (11.5-15.4) g/dL Hct 26.4 L (35.3-44.9) % Plt Count 251 (140-400) K/mcL Neutrophils # 7.9 (1.6-8.9) K/mcL BMP 04/12/16 05:40 Sodium 136 Potassium 4.4 Chloride 101 Carbon Dioxide 23 BUN 28 H D Creatinine 0.90 Glucose 160 H Calcium 8.7 Laboratory really does not look bad Consult Discharge Plan - Plan Referrals: Albertina Stark MD [Primary Care Provider] -
[2016-04-12] MEDS ORDERED: *HR* Dextrose 50 % in Water (Syg) 50 ML SYRINGE IVP PRN (13:53)
[2016-04-12] MEDS ORDERED: D5% in Water 1,000 ML IV PRN (13:53)
[2016-04-12] MEDS ORDERED: Dextrose Gel 15 GM PO PRN ×2 (13:53)
[2016-04-12] MEDS: Insulin LISPRO 300 UNITS/3 ML VIAL SQ SCH ×2 (17:29→23:31)
[2016-04-13] MEDS: *HR* OxyCODONE Immed Rel 5 MG TABLET PO PRN (03:32)
[2016-04-13] MEDS: Multivit/Ca/Min/Fe/FA 1 TAB TABLET PO SCH (08:11)
[2016-04-13] MEDS: *HR* Pioglitazone 30 MG TABLET PO SCH (08:11)
[2016-04-13] MEDS: Aspirin Enteric Coated 81 MG Tablet PO SCH (08:11)
[2016-04-13] MEDS: *HR* Metformin 500 MG TABLET PO SCH ×2 (08:12→16:53)
[2016-04-13] MEDS: *HR* GlipiZIDE 5 MG TABLET PO SCH ×2 (08:12→16:53)
[2016-04-13] MEDS: Lisinopril 20 MG TABLET PO SCH ×2 (08:14→22:28)
[2016-04-13] MEDS: *HR* Rivaroxaban 10 MG TABLET PO SCH (08:14)
[2016-04-13] MEDS: Insulin LISPRO 300 UNITS/3 ML VIAL SQ SCH ×4 (08:16→22:26)
[2016-04-13] MEDS: Fluticasone Propionate Nasal 50 MCG/SPRAY BOTTLE NS SCH (08:18)
[2016-04-13] MEDS: Ondansetron ODT 4 MG TAB.RAPDIS SL PRN (08:19)
[2016-04-13] MEDS: CALCIUM CARBONATE PO SCH ×2 (08:22→22:27)
[2016-04-13] MEDS: VITAMIN D3 PO SCH ×2 (08:22→22:27)
--- NOTE | 2016-04-13 10:57 | Internal Med Progress Note ---
Date of Encounter: 04/13/16 Time of Encounter: 10:55 - Assessment and plan (1) Diabetes mellitus Current Visit: No Status: Chronic Assessment and plan: Following blood sugars blood sugars are a little elevated but we got coverage right now. Qualifiers: Diabetes mellitus type: type 2 Diabetes mellitus complication status: with circulatory complication Diabetes mellitus complication detail: with other circulatory complications Diabetes mellitus extermination inspector insulin use: with fpc use Qualified Code(s): E11.59 - Type 2 diabetes mellitus with other circulatory complications; Z79.4 - [facility] (current) use of insulin (2) History of total right knee replacement Current Visit: Yes Status: Acute Assessment and plan: Patient is here for her total knee replacement and working with rehabilitation. (3) History of total left knee replacement Current Visit: Yes Status: Acute Assessment and plan: Current treatment. - Time Spent With Patient less than 15 minutes - Subjective Interval history: Patient was very sleepy this morning. The nurse at trouble arousing her. So I am going to cut back her pain managed 5 mg 1 or 2 instead of 10. As of right now she is perfectly responsive and alert and able to converse. - Constitutional Vitals: Temp Pulse Resp BP Pulse Ox 97.4 F L 97 20 113/63 97 04/13/16 07:00 04/13/16 07:00 04/13/16 07:00 04/13/16 07:00 04/13/16 07:00 General appearance: Present: A&O X 3, pleasant, no acute distress - Head Head exam: Present: atraumatic, normal inspection, normocephalic - Neck Neck exam general surgery: Present: supple, trachea midline. Absent: lymphadenopathy - Respiratory Respiratory exam: Present: CTAB. Absent: accessory muscle use, rales, rhonchi, wheezes - Cardiovascular Cardiovascular exam: Present: RRR, +S1, +S2. Absent: diastolic murmur, gallop, rubs, systolic murmur - GI/Abdominal GI/Abdominal exam: Present: normal bowel sounds, soft, no peritoneal signs. Absent: distended, tenderness Internal Medicine: Result - Labs CBC & Chem 7: 04/12/16 05:40 04/12/16 05:40 Labs: Lab looks okay health rechecked BUN Consult Discharge Plan - Plan Referrals: Albertina Stark MD [Primary Care Provider] -
[2016-04-13] MEDS ORDERED: OxyCODONE CONC 5 MG/0.25 ML ORAL.SYG PO PRN (11:00)
[2016-04-13] MEDS: Valsartan 160 MG TABLET PO SCH (11:39)
[2016-04-13] MEDS ORDERED: Fluconazole 100 MG TABLET PO ONE (11:45)
[2016-04-13] MEDS: Acetaminophen 325 MG TABLET PO PRN (16:52)
[2016-04-14] MEDS: Insulin LISPRO 300 UNITS/3 ML VIAL SQ SCH ×4 (08:11→20:59)
[2016-04-14] MEDS: *HR* Metformin 500 MG TABLET PO SCH ×2 (08:13→16:51)
[2016-04-14] MEDS: *HR* GlipiZIDE 5 MG TABLET PO SCH ×2 (08:13→16:51)
[2016-04-14] MEDS: *HR* Pioglitazone 30 MG TABLET PO SCH (08:14)
[2016-04-14] MEDS: *HR* OxyCODONE Immed Rel 5 MG TABLET PO PRN ×4 (08:14→21:01)
[2016-04-14] MEDS: Lisinopril 20 MG TABLET PO SCH ×2 (08:14→21:00)
[2016-04-14] MEDS: Multivit/Ca/Min/Fe/FA 1 TAB TABLET PO SCH (08:14)
[2016-04-14] MEDS: Aspirin Enteric Coated 81 MG Tablet PO SCH (08:14)
[2016-04-14] MEDS: *HR* Rivaroxaban 10 MG TABLET PO SCH (08:14)
[2016-04-14] MEDS: Fluticasone Propionate Nasal 50 MCG/SPRAY BOTTLE NS SCH (08:15)
[2016-04-14] MEDS: Valsartan 160 MG TABLET PO SCH (08:16)
[2016-04-14] MEDS: CALCIUM CARBONATE PO SCH ×2 (08:16→21:00)
[2016-04-14] MEDS: VITAMIN D3 PO SCH ×2 (08:16→21:00)
[2016-04-14] MEDS: Nystatin POWDER 30 GM BOTTLE TP PRN ×2 (09:30→22:52)
--- NOTE | 2016-04-14 11:41 | Internal Med Progress Note ---
Date of Encounter: 04/14/16 Time of Encounter: 11:37 - Assessment and plan (1) Diabetes mellitus Current Visit: No Status: Chronic Assessment and plan: Following blood sugar Qualifiers: Diabetes mellitus type: type 2 Diabetes mellitus complication status: with circulatory complication Diabetes mellitus complication detail: with other circulatory complications Diabetes mellitus correction insulin use: with correction use Qualified Code(s): E11.59 - Type 2 diabetes mellitus with other circulatory complications; Z79.4 - [facility] (current) use of insulin (2) History of total right knee replacement Current Visit: Yes Status: Acute Assessment and plan: Agents worked with PT OT and TR. Doing well (3) History of total left knee replacement Current Visit: Yes Status: Acute Assessment and plan: Previously done in working well - Time Spent With Patient less than 15 minutes - Constitutional Vitals: Temp Pulse Resp BP Pulse Ox 97.0 F L 100 18 125/60 95 04/14/16 06:34 04/14/16 06:34 04/14/16 06:34 04/14/16 06:34 04/14/16 06:34 General appearance: Present: A&O X 3, pleasant, no acute distress - Head Head exam: Present: atraumatic, normal inspection, normocephalic - Neck Neck exam general surgery: Present: supple, trachea midline. Absent: lymphadenopathy - Respiratory Respiratory exam: Present: CTAB. Absent: accessory muscle use, rales, rhonchi, wheezes - Cardiovascular Cardiovascular exam: Present: RRR, +S1, +S2. Absent: diastolic murmur, gallop, rubs, systolic murmur - GI/Abdominal GI/Abdominal exam: Present: normal bowel sounds, soft, no peritoneal signs. Absent: distended, tenderness Internal Medicine: Result - Labs CBC & Chem 7: 04/12/16 05:40 04/12/16 05:40 Labs: Lab looks good Consult Discharge Plan - Plan Referrals: Gio Ba [Other] - 04/19/16 11:30 am (2 week followup after Left TKR) Albertina Stark MD [Primary Care Provider] - 04/21/16 10:00 am (will see Christa Parker NP on Tuesday04/21/16 at 10:00am)
--- NOTE | 2016-04-14 12:16 | Physical Med Progress Note ---
Date of Encounter: 04/14/16 Time of Encounter: 12:12 Physical Medicine-PN: Subj Interval history: PMR PCC note Patient admitted following left tka Patient is SBA/CGA for ambulation 140 feet with walker. She is SBA for bed mobility. Patient is SBA for lower body dressing with adaptive equipment. She has improved significantly since admission. Patient was very lethargic with diminished participation with therapy prior to today. Plan to continue intensive PT/OT/TR. Plan for discharge to home 04/17/16. - Constitutional Vitals: Vital Signs Temp Pulse Resp BP Pulse Ox 04/14/16 06:34 97.0 F L 100 18 125/60 95 04/13/16 19:38 98.5 F 94 18 103/58 96 Intake and Output 04/13/16 04/14/16 04/14/16 23:59 07:59 15:59 Intake Total 300 / 300 480 / 480 Balance 300 / 300 480 / 480 Intake: Oral 300 / 300 480 / 480 Other: Percent of Meal Consumed 100% # Voids 1 Blood Glucose* 158 227 168 Physical Medicine-PN: Obj Data - Labs CBC & Chem 7: 04/12/16 05:40 04/12/16 05:40 Labs: Laboratory Results - last 24 hr 04/13/16 04/13/16 04/14/16 16:23 20:05 06:48 POC Glucose 180 H 158 H 227 H 04/14/16 11:45 POC Glucose 168 H Consult Discharge Plan - Plan Referrals: Gio Ba [Other] - 04/19/16 11:30 am (2 week followup after Left TKR) Albertina Stark MD [Primary Care Provider] - 04/21/16 10:00 am (will see Christa Parker NP on Tuesday04/21/16 at 10:00am)
[2016-04-14] MEDS: Fluconazole 100 MG TABLET PO SCH (16:51)
[2016-04-15] MEDS: *HR* OxyCODONE Immed Rel 5 MG TABLET PO PRN ×4 (06:34→22:21)
[2016-04-15] MEDS: Insulin LISPRO 300 UNITS/3 ML VIAL SQ SCH ×4 (08:04→23:24)
[2016-04-15] MEDS: Lisinopril 20 MG TABLET PO SCH ×2 (08:06→22:20)
[2016-04-15] MEDS: *HR* Rivaroxaban 10 MG TABLET PO SCH (08:06)
[2016-04-15] MEDS: Multivit/Ca/Min/Fe/FA 1 TAB TABLET PO SCH (08:06)
[2016-04-15] MEDS: *HR* Metformin 500 MG TABLET PO SCH ×2 (08:07→16:55)
[2016-04-15] MEDS: Fluconazole 100 MG TABLET PO SCH (08:07)
[2016-04-15] MEDS: *HR* GlipiZIDE 5 MG TABLET PO SCH ×2 (08:07→16:55)
[2016-04-15] MEDS: *HR* Pioglitazone 30 MG TABLET PO SCH (08:07)
[2016-04-15] MEDS: Aspirin Enteric Coated 81 MG Tablet PO SCH (08:07)
[2016-04-15] MEDS: Valsartan 160 MG TABLET PO SCH (08:08)
[2016-04-15] MEDS: Fluticasone Propionate Nasal 50 MCG/SPRAY BOTTLE NS SCH (08:12)
[2016-04-15] MEDS: CALCIUM CARBONATE PO SCH ×2 (08:14→23:24)
[2016-04-15] MEDS: VITAMIN D3 PO SCH ×2 (08:14→23:24)
[2016-04-15] MEDS: Nystatin POWDER 30 GM BOTTLE TP PRN ×2 (11:16→22:22)
--- NOTE | 2016-04-15 13:30 | Internal Med Progress Note ---
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 (3) History of total left knee replacement Current Visit: Yes Status: Acute Assessment and plan: Previous procedure - Subjective Interval history: Patient is alert and oriented working with therapist sleeping well at night and has no other complaints - Constitutional Vitals: Temp Pulse Resp BP Pulse Ox 97.4 F L 87 16 122/69 95 04/15/16 07:30 04/15/16 07:30 04/15/16 07:30 04/15/16 07:30 04/15/16 07:30 General appearance: Present: A&O X 3, pleasant, no acute distress - Head Head exam: Present: atraumatic, normal inspection, normocephalic - Neck Neck exam general surgery: Present: supple, trachea midline. Absent: lymphadenopathy - Respiratory Respiratory exam: Present: CTAB. Absent: accessory muscle use, rales, rhonchi, wheezes - Cardiovascular Cardiovascular exam: Present: RRR, +S1, +S2. Absent: diastolic murmur, gallop, rubs, systolic murmur Internal Medicine: Result - Labs CBC & Chem 7: 04/12/16 05:40 04/12/16 05:40 Labs: Lab looks okay Consult Discharge Plan - Plan Referrals: Gio Ba [Other] - 04/19/16 11:30 am (2 week followup after Left TKR) Albertina Stark MD [Primary Care Provider] - 04/21/16 10:00 am (will see Christa Parker NP on Tuesday04/21/16 at 10:00am)
[2016-04-16] MEDS: *HR* OxyCODONE Immed Rel 5 MG TABLET PO PRN ×5 (05:54→22:53)
[2016-04-16] MEDS: *HR* GlipiZIDE 5 MG TABLET PO SCH ×2 (07:47→18:14)
[2016-04-16] MEDS: Fluconazole 100 MG TABLET PO SCH (07:48)
[2016-04-16] MEDS: Lisinopril 20 MG TABLET PO SCH ×2 (07:48→22:52)
[2016-04-16] MEDS: *HR* Rivaroxaban 10 MG TABLET PO SCH (07:48)
[2016-04-16] MEDS: *HR* Metformin 500 MG TABLET PO SCH ×2 (07:48→18:14)
[2016-04-16] MEDS: Aspirin Enteric Coated 81 MG Tablet PO SCH (07:48)
[2016-04-16] MEDS: Fluticasone Propionate Nasal 50 MCG/SPRAY BOTTLE NS SCH (07:49)
[2016-04-16] MEDS: Multivit/Ca/Min/Fe/FA 1 TAB TABLET PO SCH (07:49)
[2016-04-16] MEDS: Insulin LISPRO 300 UNITS/3 ML VIAL SQ SCH ×4 (07:49→22:52)
[2016-04-16] MEDS: *HR* Pioglitazone 30 MG TABLET PO SCH (07:49)
[2016-04-16] MEDS: VITAMIN D3 PO SCH ×2 (07:50→22:52)
[2016-04-16] MEDS: CALCIUM CARBONATE PO SCH ×2 (07:50→22:52)
[2016-04-16] MEDS: Valsartan 160 MG TABLET PO SCH (07:50)
--- NOTE | 2016-04-16 13:16 | Internal Med Progress Note ---
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 Ditto - Constitutional Vitals: Temp Pulse Resp BP Pulse Ox 97.5 F L 87 16 108/68 95 04/16/16 07:00 04/16/16 07:00 04/16/16 07:00 04/16/16 07:00 04/16/16 07:00 General appearance: Present: A&O X 3, pleasant, no acute distress - Head Head exam: Present: atraumatic, normal inspection, normocephalic - Neck Neck exam general surgery: Present: supple, trachea midline. Absent: lymphadenopathy - Respiratory Respiratory exam: Present: CTAB. Absent: accessory muscle use, rales, rhonchi, wheezes - Cardiovascular Cardiovascular exam: Present: RRR, +S1, +S2. Absent: diastolic murmur, gallop, rubs, systolic murmur Internal Medicine: Result - Labs CBC & Chem 7: 04/12/16 05:40 04/12/16 05:40 Labs: Lab is stable Consult Discharge Plan - Plan Referrals: Gio Ba [Other] - 04/19/16 11:30 am (2 week followup after Left TKR) Albertina Stark MD [Primary Care Provider] - 04/21/16 10:00 am (will see Christa Parker NP on Tuesday04/21/16 at 10:00am)
[2016-04-16] MEDS: Nystatin POWDER 30 GM BOTTLE TP PRN (22:55)
[2016-04-17] MEDS: *HR* OxyCODONE Immed Rel 5 MG TABLET PO PRN ×2 (05:52→12:01)
[2016-04-17 07:14] VITALS: BP 133/75
[2016-04-17] MEDS: Fluticasone Propionate Nasal 50 MCG/SPRAY BOTTLE NS SCH (08:47)
[2016-04-17] MEDS: Insulin LISPRO 300 UNITS/3 ML VIAL SQ SCH (08:47)
[2016-04-17] MEDS: Fluconazole 100 MG TABLET PO SCH (08:48)
[2016-04-17] MEDS: *HR* GlipiZIDE 5 MG TABLET PO SCH (08:48)
[2016-04-17] MEDS: Multivit/Ca/Min/Fe/FA 1 TAB TABLET PO SCH (08:48)
[2016-04-17] MEDS: Lisinopril 20 MG TABLET PO SCH (08:48)
[2016-04-17] MEDS: *HR* Metformin 500 MG TABLET PO SCH (08:48)
[2016-04-17] MEDS: Valsartan 160 MG TABLET PO SCH (08:49)
[2016-04-17] MEDS: Aspirin Enteric Coated 81 MG Tablet PO SCH (08:49)
[2016-04-17] MEDS: *HR* Pioglitazone 30 MG TABLET PO SCH (08:49)
[2016-04-17] MEDS: VITAMIN D3 PO SCH (08:49)
[2016-04-17] MEDS: CALCIUM CARBONATE PO SCH (08:49)
[2016-04-17] MEDS: *HR* Rivaroxaban 10 MG TABLET PO SCH (08:49)
--- NOTE | 2016-04-17 11:23 | Discharge Summary ---
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 - Discharge Medications Home Medications: Aspirin [Lo-Dose Aspirin EC] 81 mg PO DAILY 03/05/16 [History] Bisacodyl [Dulcolax] 10 mg RC DAILY PRN 03/05/16 [History] Calcium Carbonate/Vitamin D3 [Calcium 600 + Vit D Tablet] 1 each PO BID [History] DiphenhydraMINE [Benadryl] 25 mg PO Q6HR PRN 03/05/16 [History] Ferrous Sulfate [Iron] 325 mg PO DAILY 03/05/16 [History] Fluticasone Propionate Nasal [Flonase] 2 spray NS DAILY 03/05/16 [History] Gluc/Tomy-MSM#1/Vit C/Pantera/Bor [Mdbjovv-Kwsxe-PTV Complex Cplt] 1 each PO 1-2XD 03/05/16 [History] Hydrocortisone Acetate [Anusol-Hc] 25 mg RC BID PRN 03/05/16 [History] Lisinopril [Zestril] 20 mg PO BID 03/05/16 [History] Metformin [Glucophage] 1,000 mg PO BIDWM 03/05/16 [History] Multivit-Min/Iron Fum/Folic AC [Hsueg-Cwuzacy-Yukpecrc Tablet] 1 each PO DAILY 03/05/16 [History] Omeprazole [PriLOSEC] 20 mg PO DAILY 03/05/16 [History] Polyethylene Glycol 3350 [MiraLAX] 17 gm PO DAILY 03/05/16 [History] Pravastatin Sodium [Pravachol] 10 mg PO DAILY 03/05/16 [History] Rivaroxaban [Xarelto] 10 mg PO DAILY 03/05/16 [History] Wheat Dextrin [Benefiber] 1 tab PO DAILY 03/05/16 [History] GlipiZIDE [Glipizide] 20 mg PO BID 04/09/16 [History] OxyCODONE Immed Rel [Roxicodone 5 MG] 10 mg PO Q4HR PRN 04/09/16 [History] Pioglitazone HCl [Actos] 30 mg PO DAILY 04/09/16 [History] Valsartan/Hydrochlorothiazide [Diovan Hct 320-25 mg Tablet] 1 each PO DAILY [History] Allergies/Adverse Reactions: Allergies adhesive tape Allergy (Verified 03/05/16 16:41) Blister Sulfa (Sulfonamide Antibiotics) Adverse Reaction (Verified 02/24/15 08:40) Hives Date of admission: 04/09/16 15:18 Primary care physician: Albertina Stark, Consults: 04/09/16 17:10 Consult to Occupational Therapy [CONS] Routine Comment: Evaluate, develop and implement POC Consult to Physical Therapy [CONS] Routine Comment: Evaluate, develop and implement POC Consult to Recreational Therapy [CONS] Routine Comment: Evaluate, develop and implement POC - Patient Status Disposition: Home, Self-Care Condition: Good Overall status at discharge: patient is progressing back to baseline - Discharge Instructions Follow Up With: Gio Ba [Other] - 04/19/16 11:30 am (2 week followup after Left TKR) Albertina Stark MD [Primary Care Provider] - 04/21/16 10:00 am (will see Christa Parker NP on Tuesday04/21/16 at 10:00am) - Diet and Activity Activity: as per physical therapy Diet: advance to your usual diet Interval History: 76-year-old admitted to this facility for PTOT for medical deconditioning. She tolerated all of the therapy. She continued to improve in terms of her gait, transfer ADL endurance ADL. On today's examination, she states that she is ready to go home to continue with outpatient therapy Hospital course: Ms. Sandhu is a 76 year old female Time spent discussing smoking cessation with patient: 3 to 10 minutes - Time Spent with Patient Total time spent providing and/or coordinating discharge services: Less than 30 minutes - Constitutional Vitals: Temp Pulse Resp BP Pulse Ox 97.4 F L 88 16 133/75 97 04/17/16 07:13 04/17/16 07:13 04/17/16 07:13 04/17/16 07:13 04/17/16 07:13 General appearance: Present: A&O X 3, pleasant, no acute distress - Respiratory Respiratory exam: Present: CTAB. Absent: accessory muscle use, rales, rhonchi, wheezes - GI/Abdominal GI/Abdominal exam: Present: normal bowel sounds, soft, no peritoneal signs. Absent: distended, tenderness - Extremities Exam Extremities exam: Present: warm, radial pulses palpable and symetrical. Absent : calf tenderness, cyanotic, pedal edema - Neurological Exam Neurological exam: Present: CN II-XII intact, oriented X3, no focal deficits. Absent: pronater drift, facial droop, speech deficit - Skin Skin exam: Present: dry, intact
== END 2016-04-17 12:00 | disposition home or self-care (01) | DRG 561 ==
LOC: INPGRE 15:18
PROVIDERS: ADMIT Internal Medicine; ATTEND Internal Medicine